=== PATIENT | male | born 1930 | race Caucasian/White ===

== ENCOUNTER 2017-07-25 11:51 | Emergency (ER) | payer OTHER ==
[~2017-07-25] VITALS: Ht 167.6 cm; Wt 65.8 kg
[~2017-07-25 11:51] MED LIST: AMLODIPINE BESY10 MG PO; CIPRO500 MG PO; FLAGYL500 MG PO; HYDRALAZINE 2525 MG PO; HYDROCHLOROTH12.5 M1 PO; NORVASC5 MG PO; RAMIPRIL10 MG PO; TOPROL XL25 MG PO
[2017-07-25] MEDS ORDERED: IBUPROFEN 600600 M1 PO (13:05)
[2017-07-25] MEDS ORDERED: TESSALON PERLE100 M1 PO (13:05)
[2017-07-25] MEDS ORDERED: HYDROCHLOROTH12.5 M2 PO (13:30)
== END 2017-07-25 13:30 | disposition home or self-care (01) ==
LOC: ER 11:51
DX: J11.1 Influenza due to unidentified influenza virus with other respiratory manifestations (principal); I10 Essential (primary) hypertension; Z88.6 Allergy status to analgesic agent

== ENCOUNTER 2020-02-21 11:54 | Emergency (ER) | payer OTHER ==
[~2020-02-21] VITALS: Ht 167.6 cm; Wt 65.3 kg
[~2020-02-21 11:54] MED LIST changes: +HYDROCHLOROTH12.5 M2 PO; +IBUPROFEN 600600 M1 PO; +TESSALON PERLE100 M1 PO
[2020-02-21 13:05] LABS: ABSOLUTE NEUTROPHILS 2.8 thou/uL (1.4-8.2); BASOPHILS 0.4 % (0.0-2.0); EOSINOPHILS 0.7 % (0.0-3.0); HEMATOCRIT 33.7 % (42.0-52.0); HEMOGLOBIN 11.3 gm/dL (14.0-18.0); LYMPHOCYTES 27.2 % (24.0-44.0); MCH 33.7 pg (26.0-34.0); MCHC 33.7 g/dL (28.0-37.0); MONOCYTES 8.3 % (1.0-8.0); PLATELET COUNT 197 thou/uL (150-400); POLYS 63.4 % (36.0-66.0); RBC 3.37 mil/uL (4.50-6.00); WBC 4.3 thou/uL (4.0-11.0)
[2020-02-21] MEDS ORDERED: METOPROLOL SUCC25 M1 PO (13:18)
[2020-02-21 13:21] LABS: CALCIUM 9.6 mg/dL (8.5-10.1); CREATININE 0.9 mg/dL (0.7-1.3); POTASSIUM 3.8 mmol/L (3.5-5.1)
[2020-02-21 13:28] LABS: ALBUMIN 3.5 g/dL (3.4-5.0); TOTAL BILIRUBIN 0.6 mg/dL (0.2-1.0); TOTAL PROTEIN 6.1 g/dL (6.4-8.2)
[2020-02-21 13:30] LABS: URINE BILIRUBIN NEGATIVE (Negative); URINE BLOOD NEGATIVE (Negative); URINE CLARITY CLEAR; URINE COLOR YELLOW; URINE GLUCOSE-RANDOM* NEGATIVE (Negative); URINE KETONES NEGATIVE (Negative); URINE LEUKOCYTES-REFLEX NEGATIVE (Negative); URINE NITRITE-REFLEX NEGATIVE (Negative); URINE PROTEIN (DIPSTICK) NEGATIVE (Negative); URINE SPECIFIC GRAVITY 1.015 (1.005-1.035); URINE UROBILINOGEN 0.2 E.U./dl (0.2-1.0)
[2020-02-21] MEDS ORDERED: CITROMA296 ML PO (16:38)
[2020-02-21 17:55] VITALS: BP 146/68
== END 2020-02-21 18:04 | disposition home or self-care (01) ==
LOC: ER 11:54
PROVIDERS: Physician Assistant
DX: K59.00 Constipation, unspecified (principal); I10 Essential (primary) hypertension; Z79.899 Other long term (current) drug therapy; Z88.6 Allergy status to analgesic agent

== ENCOUNTER 2021-03-08 21:13 | Inpatient (IN) | payer OTHER ==
[~2021-03-08] VITALS: Ht 165.1 cm; Wt 64.4 kg
--- NOTE | ~2021-03-08 | HC ---
[facility] [place] [address] CONSULTATION Name: LUIZ MADSEN Room #: 454-P ADM IN M.R.#: [id number] Admission: 03/09/21 Attend Phys: Too Ritchie MD Discharge: Date of : 34 Report #: [id number] THIS REPORT FOR: cc: Hector Olivas MD, John M. MD Smithson, David G. MD ~ DATE OF SERVICE: 03/10/2021 HISTORY OF PRESENT ILLNESS: The patient is an 89-year-old white male admitted with increased lower extremity edema and generalized weakness. He was noted to have left lower extremity cellulitis with uncontrolled hypertension. He has been given IV Lasix. OT is involved with leg wraps. We are seeing him in rehabilitation medicine consultation. His prior medical history includes a recent left peroneal artery repair at [facility] last October. He also was noted to have a recent stay at [facility] with bilateral lower extremity edema. He has a history of hypertension. PAST SURGICAL HISTORY: Includes the left peroneal artery repair, history of a right hip replacement, knee repair, synovial cyst extraction. MEDICATIONS: Please see the full medication listing. SOCIAL HISTORY: Lives at home with his . Used a cane or a walker. Split level with railings. Normally uses a cane, but had been using the walker for the last couple of weeks. There are 6+6 steps in. Code status is full. FAMILY HISTORY: Noncontributory. REVIEW OF SYSTEMS: No current complaints of chest pain, shortness of breath or abdominal discomfort. ALLERGIES: ASPIRIN. HABITS: No history of tobacco or alcohol abuse. PHYSICAL EXAMINATION: GENERAL: An 89-year-old white male in no obvious distress. VITAL SIGNS: Last recorded temperature 36.8, pulse 92, respirations 16, blood pressure 138/53. NEUROLOGIC: He is alert, pleasant, oriented, follows basic 1-step commands. Facies are symmetric. He has functional range of motion of both upper extremities, strength is grade 4-/5. DTRs are trace to 1. No focal calf swelling. He does have bilateral lower extremities wrapped. Swelling and edema appeared to have decreased from admission, more of a 1-2+ as opposed to the 3+ he had initially. His left peroneal artery surgical scar appears to be healing well. Functionally, he is min assist sit to stand. Gait was 150 feet min [facility] [address] [place] [address] CONSULTATION Name: LUIZ MADSEN Room #: 454-P [facility] IN M.R.#: [id number] Admission: 03/09/21 Attend Phys: Too Ritchie MD Discharge: Date of : 32 Report #: [id number] assist with a front-wheeled walker. ASSESSMENT: An 89-year-old white male with the following problems: 1. Generalized weakness and debilitation. 2. Bilateral lower extremity edema. 3. Left lower extremity cellulitis. 4. Uncontrolled hypertension. 5. Recent left peroneal artery surgery. 6. Prior right total hip replacement. 7. Prior total knee replacement. PLAN: I do not see that the patient would meet insurance criteria for an acute 5 North inpatient rehabilitation stay. Would recommend a skilled level stay as most appropriate. Case management to work within the insurance coverage regarding options. Thank you for asking us to assist in this patient's care. By: [phone] Regan Lofton MD /nt
[~2021-03-08 21:13] MED LIST changes: +CITROMA296 ML PO; +METOPROLOL SUCC25 M1 PO
[2021-03-08 21:20] VITALS: BP 150/53
[2021-03-08] MEDS ORDERED: FUROSEMIDE 40 M40 M1 PO (23:01)
[2021-03-08] MEDS ORDERED: DOXAZOSIN MESYLA1 MG PO (23:01)
[2021-03-08] MEDS ORDERED: RAMIPRIL10 MG PO (23:02)
[2021-03-08 23:05] LABS: BASOPHILS 0.7 % (0.0-2.0); EOSINOPHILS 0.5 % (0.0-3.0); HEMATOCRIT 33.1 % (42.0-52.0); LYMPHOCYTES 18.6 % (24.0-44.0); MCH 33.3 pg (26.0-34.0); MCHC 33.4 g/dL (28.0-37.0); MCV 99.9 fL (80.0-100.0); MONOCYTES 7.8 % (1.0-8.0); PLATELET COUNT 190 thou/uL (150-400); POLYS 72.4 % (36.0-66.0); RBC 3.31 mil/uL (4.50-6.00); RDW 14.6 % (10.5-14.5); WBC 6.9 thou/uL (4.0-11.0)
[2021-03-08 23:14] LABS: ANION GAP 8 mmol/L (7-16); BUN 21 mg/dL (7-18); CALCIUM 9.8 mg/dL (8.5-10.1); CHLORIDE 106 mmol/L (98-107); CO2 26 mmol/L (21-32); GLUCOSE 99 mg/dL (74-106); POTASSIUM 4.4 mmol/L (3.5-5.1); SODIUM 140 mmol/L (136-145)
[2021-03-08 23:24] LABS: ALBUMIN 3.5 g/dL (3.4-5.0); DIRECT BILIRUBIN < 0.1 mg/dL (<0.1-0.2); SGOT 26 U/L (15-37); SGPT 26 U/L (16-63); TOTAL BILIRUBIN 0.5 mg/dL (0.2-1.0); TOTAL PROTEIN 6.3 g/dL (6.4-8.2)
[2021-03-09 04:00] VITALS: BP 138/55
--- NOTE | 2021-03-09 04:00 | NUR ---
Pt. admitted to the unit from the emergency room accompanied by staff. He is alert and oriented. Pt. offers no c/o pain or discomfort. Admission assess- ment and history is completed. Bed alarm is on.
[2021-03-09 04:28] VITALS: BP 147/72
[2021-03-09 05:39] VITALS: BP 136/44
[2021-03-09 07:00] VITALS: BP 148/59
--- NOTE | 2021-03-09 12:12 | NUR ---
ASSUMED PT CARE THIS AM. PT A&OX4, ABLE TO MAKE NEEDS KNOWN. PATIENT REPORTING NO PAIN, NUMBNESS, OR TINGLING. PATIENT WITH BLE EDEMA NOTED, LEG WRAPS ARE INTACT. PATIENT IS ON ROOM AIR. PATIENT REMAINS CONTINENT, USING URINAL AT BEDSIDE. PATIENT IS HARD OF HEARING BUT ABLE TO MAKE NEEDS KNOWN. MEDICATIONS TAKEN WITHOUT ISSUE THIS AM. IV REMAINS PATENT. FALL PRECAUTIONS ARE IN PLACE, CALL LIGHT WITHIN REACH.
[2021-03-09 17:04] VITALS: BP 120/52
[2021-03-09 19:19] VITALS: BP 124/53
[2021-03-10 05:36] VITALS: BP 140/55
[2021-03-10 05:40] LABS: HEMATOCRIT 30.4 % (42.0-52.0); HEMOGLOBIN 10.3 gm/dL (14.0-18.0); MCH 33.8 pg (26.0-34.0); MCHC 33.9 g/dL (28.0-37.0); MCV 99.8 fL (80.0-100.0); RBC 3.05 mil/uL (4.50-6.00); RDW 14.3 % (10.5-14.5); WBC 4.9 thou/uL (4.0-11.0)
[2021-03-10 05:56] LABS: CALCIUM 8.9 mg/dL (8.5-10.1); POTASSIUM 3.4 mmol/L (3.5-5.1)
--- NOTE | 2021-03-10 05:57 | NUR ---
PATIENT CALM AND COOPERATIVE WITH CARE AND MEDS. PATIENT DELROY WRAPS ON BLE IS C/D/I. FALL PRECAUTION IN PLACE. PATIENT IN BED ASLEEP AT THIS TIME BREATHING REGULAR AND UNLABOURED.
[2021-03-10 07:35] VITALS: BP 126/69
[2021-03-10 13:45] VITALS: BP 115/44
--- NOTE | 2021-03-10 14:13 | NUR ---
ASSUMED PT CARE THIS AM. PT A&OX4, ABLE TO MAKE NEEDS KNOWN. PATIENT WITH EDEMA NOTED TO BILATERAL LOWER EXTREMETIES. PATIENT REMAINS CONTINENT, USING A URINAL AT BEDSIDE. PATIENT REMAINS ON ROOM AIR. MEDICATIONS TAKEN WITHOUT ISSUE. FALL PRECAUTIONS ARE IN PLACE, CALL LIGHT WITHIN REACH. IV REMAINS PATENT, SALINE LOCKED.
--- NOTE | 2021-03-10 15:44 | NUR ---
Chart review. Dx lower ext swelling and cellulitis. Unable to visit with nina, resting with eyes closed. Cm called his daughter delia gonsales # [phone], is primary contact r/t his has dementia and prior to hospital he was caring for her but not sure he was caring for himself, he is going to need some rehab before he can go home per delia. Live in house. Steps to enter and stair inside with spouse, he cares for her. He as cane and walker that he was not needing 3months prior to hospital and now last 3 months he was at [facility], then [facility] and now back to [facility]. HH was with [facility]. Manage his own medication and finances, which daughter has taken those over and she will care for mrs gonsales while he is not home. 2 falls in last 3months. no life alerts per delia. 5n consult and [facility] skilled list to his daughter delia for back up dcp.
[2021-03-10 19:53] VITALS: BP 152/62
[2021-03-11 06:25] VITALS: BP 141/64
--- NOTE | 2021-03-11 07:20 | NUR ---
patient c/o constipation called school adjustment counselor new order of milarax. patient had a bm. patient ambulates to the bathroom with steady gaits.pain controlled this shift. fall precaution in place. patient in bed asleep at this time breathing regular and unlaboured.
[2021-03-11 07:30] VITALS: BP 114/46
--- NOTE | 2021-03-11 10:57 | NUR ---
ASSUMED PT CARE THIS AM. PT A&OX4, ABLE TO MAKE NEEDS KNOWN. PATIENT REPORTING NO PAIN, NUMBNESS, OR TINGLING. IV REMAINS PATENT, SALINE LOCKED. PATIENT ON ROOM AIR. OT WRAPPED PATIENTS LEFT LEG TODAY. MEDICATION TAKEN WITHOUT ISSUE THIS AM. FALL PRECAUTIONS ARE IN PLACE, CALL LIGHT WITHIN REACH. EDEMA NOTED TO BILATERAL LOWER EXTREMETIES.
--- NOTE | 2021-03-11 12:13 | NUR ---
5N CONSULTED AND IT WAS INDICATED THAT THEY DIDN'T THINK THAT PT WOULD LIKELY BE ABLE TO TOLERATE 3HRS OF THERAPY PER DAY AND THAT SHORT TERM SKILLED REHAB WOULD BE MORE APPROPRIATE. PT'S DTR ASKED THAT REFERRAL BE SENT TO [facility] AT [address] FOR REVEIW FOR POSSIBLE ADMISSION. REFERRAL FAXED. CM FOLLOWING REGARDING DC PLANNING.
[2021-03-11 20:08] VITALS: BP 118/42
--- NOTE | 2021-03-12 06:23 | NUR ---
ASSUMED CARE OF PT AT 1900. PT IS ALERT AND ORIENTED, RESTING IN ROOM THROUGHOUT THE NIGHT WITH NO COMPLAINTS, VSS. SLIGHT LEG PAIN CONTROLLED WITH ORAL TYLENOL. AMBULATES STABLY TO THE COMMODE. NOTICED SOME BILATERAL BUTTOCK SKIN BREAKDOWN/SHEARING, PLACED MEPILEX AND WILL UPDATE DAY SHIFT RN. WILL CONTINUE TO MONITOR.
[2021-03-12 07:36] VITALS: BP 139/59
--- NOTE | 2021-03-12 15:18 | NUR ---
STILL AWAITING [facility] DETERMINATION ON AUTH FOR SKILLED AT [facility]. CM FAXED CLINICAL INFO OVER THIS AM.
[2021-03-12 15:21] VITALS: BP 138/51
[2021-03-12 19:59] VITALS: BP 143/58
--- NOTE | 2021-03-13 04:07 | NUR ---
ASSUMED PT CARE THIS PM. PT IS ALERT AND ORIENTED X4. PT C/O PAIN WHICH WAS MANAGED BY PRN PAIN MEDS. PT IS UPX1 WITH WALKER. PT HAS REDNESS TO SACRUM AND R THIGH. PT HAS DELROY WRAPPING ON L LEG WHICH IS D/C/I. PT IS UPX1 WITH WALKER AND GB AND USES URINAL. PT IS ON RA. FALL PRECAUTIONS IN PLACE. WILL CONTINUE TO MONITOR.
[2021-03-13 06:13] LABS: HEMATOCRIT 30.1 % (42.0-52.0); HEMOGLOBIN 10.1 gm/dL (14.0-18.0); MCH 33.4 pg (26.0-34.0); MCHC 33.4 g/dL (28.0-37.0); MCV 100.1 fL (80.0-100.0); RBC 3.01 mil/uL (4.50-6.00); RDW 14.7 % (10.5-14.5); WBC 4.3 thou/uL (4.0-11.0)
[2021-03-13 06:26] LABS: CALCIUM 9.4 mg/dL (8.5-10.1); CREATININE 1.1 mg/dL (0.7-1.3); POTASSIUM 4.3 mmol/L (3.5-5.1)
[2021-03-13 07:12] VITALS: BP 181/72
[2021-03-13 15:18] VITALS: BP 136/58
[2021-03-13] MEDS ORDERED: VITAMIN D21250 MCG PO (15:27)
[2021-03-13] MEDS ORDERED: PEPCID20 MG PO (15:27)
[2021-03-13] MEDS ORDERED: MIRALAX17 GM PO (15:27)
[2021-03-13] MEDS ORDERED: TYLENOL325 MG PO (15:27)
--- NOTE | 2021-03-13 16:31 | NUR ---
INSURANCE CALLED THIS AM INDICATING THEY WANTED A P2P DONE BY 1PM THIS DAY. CM PROVIDED PHYSICIAN WITH INFO AND P2P WAS COMPLETED. AUTH WAS RECEIVED. ORDERS ENTERED AND COVEID COLLECTED. BOP FILLED THEIR LAST BED PRIOR TO COVID TEST RESULTING. THEY HAVE INDICATED THAT THEY CAN ACCEPT PT FOR ADMISSION TOMORROW AT 10:00 AM REG WC NO O2. CM NOTIFIED PT AND DTR. CHART COPY MADE TODAY. ORDERS AND NEGATIVE COVID TEST FAXED.
--- NOTE | 2021-03-13 17:44 | NUR ---
PT WORKED WITH PT/OT TODAY AND WAS UP IN CHAIR. PT BHAKTI PAIN AND IS TOLERATING PO WELL. WILL DC TO FACILITY IN AM.
[2021-03-13 20:24] VITALS: BP 158/67
--- NOTE | 2021-03-14 01:02 | NUR ---
ASSUMED CARE OF PT AT 1930 ON 03/13/21. PT IS A&OX4. IS JAMUL. HAS HEARING AID IN A BAG IN ROOM ON BEDSIDE TABLE. IS STABLE. REPORTS PAIN IN RIGHT KNEE THAT IS BEING MANAGED WITH ORAL PAIN MEDS, ICE PACK, & OTHER THERAPUETIC TECHNIQUES. WRAPS TO LLE FOR CELLULITIS & EDEMA INTACT. IS ABLE TO REPOSITION SELF IN BED. IS ON ROOM AIR. IS UP WITH 1 ASSIST, ALEX W. FALL PRECAUTIONS & HOURLY ROUNDING CONTINUED THIS SHIFT. LABS & VITALS REVIEWED. PT REPORTED THAT HE TAKES AMLODIPINE, METROPOLOL, & HYDRALZINE. IS NOT SURE THE DOSAGE. WILL HAVE DAUGHTER/DR.'S OFFICE TO CALL UNIT IN THE AM WITH THAT INFORMATION BP WAS 158/67 HR 55. PT IS CONCERNED. 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 IS WILLING TO RESART MEDS, BUT IS UNSURE OF DOSAGE. PT IS CURRENTLY ASLEEP. CALL LIGHT WITHIN REACH. WILL CONTINUE TO MONITOR.
[2021-03-14 05:36] LABS: HEMATOCRIT 32.2 % (42.0-52.0); HEMOGLOBIN 10.8 gm/dL (14.0-18.0); MCH 33.6 pg (26.0-34.0); MCHC 33.6 g/dL (28.0-37.0); MCV 100.2 fL (80.0-100.0); RBC 3.21 mil/uL (4.50-6.00); RDW 14.4 % (10.5-14.5); WBC 4.1 thou/uL (4.0-11.0)
[2021-03-14 06:03] LABS: CALCIUM 9.3 mg/dL (8.5-10.1); POTASSIUM 4.4 mmol/L (3.5-5.1)
[2021-03-14 07:59] VITALS: BP 171/69
[2021-03-14 08:26] VITALS: BP 171/69
--- NOTE | 2021-03-14 09:48 | NUR ---
TODAY THIS PT IS GEARING UP FOR D/C HE TOOK ALL HIS MEDS THIS MORNING WITH NO DIFFICULTY AND HE IS NOW AWAITING D/C.
== END 2021-03-14 10:50 | DRG 603 ==
LOC: ER 21:13 → EROBS 03-09 01:34 → 4W 03-09 01:34
PROVIDERS: Emergency Medicine; Hospitalist; Nurse Practitioner Family; ADMIT Hospitalist; ATTEND Hospitalist
DX: L03.116 Cellulitis of left lower limb (principal); I10 Essential (primary) hypertension; E55.9 Vitamin D deficiency, unspecified; Z20.822 Contact with and (suspected) exposure to COVID-19; Z96.641 Presence of right artificial hip joint; R53.81 Other malaise; F43.9 Reaction to severe stress, unspecified; Z79.899 Other long term (current) drug therapy; Z88.6 Allergy status to analgesic agent; Z28.21 Immunization not carried out because of patient refusal
CPT/HCPCS: 10047